=== PATIENT | male | born 1955 | race Caucasian/White ===

== ENCOUNTER 2017-09-02 18:33 | Observation (INO) | payer SELFPAY ==
[~2017-09-02] VITALS: Ht 175.3 cm; Wt 124.7 kg
[~2017-09-02 18:33] MED LIST: CIPR500T78 PO; HYDR-1231 PO; LEVO750T6 PO; METR500T PO
--- NOTE | 2017-09-02 18:52 | Diagnostic Imaging Report ---
CT HEAD WO-R/O STROKE TECHNIQUE: Unenhanced CT imaging of the head was performed. INDICATION: Difficulty speaking. Dizziness. COMPARISON: None available. FINDINGS: No hyperdense hemorrhage or space-occupying mass. No hydrocephalus or midline shift. No evidence of acute territorial infarct. The basilar cisterns are widely patent. No acute calvarial abnormality. Paranasal sinuses and mastoid air cells are clear. IMPRESSION: No acute intracranial process by CT. Dictated by: Dictated on workstation # [id number]
[2017-09-02] MEDS ORDERED: meTOprolol 5 MG/5 ML (LOPRESSOR) VIAL ONE (18:56)
[2017-09-02 19:03] LABS: BASOPHILS # (AUTO) 0.1 10^3/uL (0.0-0.1); BASOPHILS % (AUTO) 1 % (0-10); EOSINOPHILS # (AUTO) 0.2 10^3/uL (0.0-0.3); EOSINOPHILS % (AUTO) 3 % (0-10); HEMATOCRIT 49 % (40-54); HEMOGLOBIN 16.6 G/DL (13.3-17.7); LYMPHOCYTES % (AUTO) 25 % (12-44); MEAN CORPUSCULAR HEMOGLOBIN 27 PG (25-34); MEAN CORPUSCULAR HGB CONC 34 G/DL (32-36); MEAN CORPUSCULAR VOLUME 80 FL (80-99); MEAN PLATELET VOLUME 9.2 FL (7.4-10.4); MONOCYTES % (AUTO) 12 % (0-12); NEUTROPHILS # (AUTO) 4.7 X 10^3 (1.8-7.8); NEUTROPHILS % (AUTO) 59 % (42-75); PLATELET COUNT 318 10^3/uL (130-400); RED BLOOD COUNT 6.06 10^6/uL (4.35-5.85); RED CELL DISTRIBUTION WIDTH 14.5 % (10.0-14.5)
[2017-09-02 19:15] LABS: INR 1.1 (0.8-1.4)
[2017-09-02 19:18] LABS: FIBRIN DEGRADATION PRODUCTS 0.35 UG/ML (0.00-0.49)
--- NOTE | 2017-09-02 19:20 | ED Neurological Problem ---
General Chief Complaint: Neurological Problems Stated Complaint: SLURRED SPEECH,NOT COHERENT, X2 HOURS AGO Source: patient Exam Limitations: no limitations History of Present Illness Date Seen by Provider: Sep 02, 2017 Time Seen by Provider: 18:40 Initial Comments Here with report of slurred speech for the last 2-3 hours. Last known well time was 4 p.m. but thinks the symptoms started sometime after that but is not exactly sure. Has no dysfunction with regard to weakness or sensation issues. Is alert and oriented and is walking without difficulty and or balance problems. Never had anything like this previously. Does report being on phentermine for weight loss. Timing/Duration: 1-3 hours Severity: moderate Associated Symptoms: confusion, No nausea/vomiting, No seizures, slurred speech , No tingling in legs/feet, No trouble walking, No vision changes, No weakness Allergies and Home Medications Allergies Coded Allergies: No Known Drug Allergies (Unverified , 07/19/12) Home Medications Ciprofloxacin HCl 500 Mg Tablet, 500 MG PO BID, #20 Prescribed by: RJ GUZMAN on 05/10/14 1656 Hydrocodone Bit/Acetaminophen 1 Tab Tablet, 1-2 TAB PO Q6H PRN for PAIN, #20 Prescribed by: RJ GUZMAN on 05/10/14 165 Metronidazole 500 Mg Tab, 1 EACH PO TID, #30 Prescribed by: RJ GUZMAN on 05/10/14 1656 Constitutional: see HPI, No chills, No fever Eyes: No Symptoms Reported Ears, Nose, Mouth, Throat: no symptoms reported Respiratory: no symptoms reported Cardiovascular: No chest pain, No edema, No palpitations Gastrointestinal: no symptoms reported, No abdominal pain Genitourinary: no symptoms reported Musculoskeletal: no symptoms reported Skin: no symptoms reported Psychiatric/Neurological: See HPI, Denies Headache, Denies Weakness All Other Systems Reviewed Negative Unless Noted: Yes Past Avslzra-Efjway-Ycjjyn Hx Patient Social History Alcohol Use: Occasionally Uses Recreational Drug Use: No Recent Foreign Travel: No Contact w/Someone Who Travel: No Surgeries History of Surgeries: Yes Surgeries: Gallbladder Respiratory History of Respiratory Disorde: No Cardiovascular History of Cardiac Disorders: Yes Cardiac Disorders: Hypertension Gastrointestinal History of Gastrointestinal Di: Yes Gastrointestinal Disorders: Diverticulosis Reviewed Nursing Assessment Reviewed/Agree w Nursing PMH: Yes Family Medical History Significant Family History: No Pertinent Family Hx Physical Exam Vital Signs Capillary Refill : General Appearance: WD/WN, no apparent distress HEENT: PERRL/EOMI, pharynx normal Neck: full range of motion, supple Respiratory: lungs clear, normal breath sounds Cardiovascular: no murmur, tachycardia Gastrointestinal: non tender, soft Back: normal inspection, no CVA tenderness, no vertebral tenderness Extremities: non-tender, normal inspection Neurologic/Psychiatric: alert, oriented x 3 Crainal Nerves: abnormal speech (stuttering and word searching), No facial asymmetry, No facial droop, No facial paresthesias, No facial weakness, No tongue deviation to R, No tongue deviation to L Coordination/Gait: normal gait Motor/Sensory: no motor deficit, no sensory deficit, no pronator drift Skin: normal color, warm/dry Progress/Results/Core Measures Results/Orders Lab Results Laboratory Tests Test 09/02/17 18:54 Range/Units White Blood Count 8.0 4.3-11.0 10^3/uL Red Blood Count 6.06 H 4.35-5.85 10^6/uL Hemoglobin 16.6 13.3-17.7 G/DL Hematocrit 49 40-54 % Mean Corpuscular Volume 80 80-99 FL Mean Corpuscular Hemoglobin 27 25-34 PG Mean Corpuscular Hemoglobin Concent 34 32-36 G/DL Red Cell Distribution Width 14.5 10.0-14.5 % Platelet Count 318 130-400 10^3/uL Mean Platelet Volume 9.2 7.4-10.4 FL Neutrophils (%) (Auto) 59 42-75 % Lymphocytes (%) (Auto) 25 12-44 % Monocytes (%) (Auto) 12 0-12 % Eosinophils (%) (Auto) 3 0-10 % Basophils (%) (Auto) 1 0-10 % Neutrophils # (Auto) 4.7 1.8-7.8 X 10^3 Lymphocytes # (Auto) 2.0 1.0-4.0 X 10^3 Monocytes # (Auto) 1.0 0.0-1.0 X 10^3 Eosinophils # (Auto) 0.2 0.0-0.3 10^3/uL Basophils # (Auto) 0.1 0.0-0.1 10^3/uL Prothrombin Time 14.0 12.2-14.7 SEC INR Comment 1.1 0.8-1.4 Activated Partial Thromboplast Time 32 24-35 SEC D-Dimer 0.35 0.00-0.49 UG/ML Sodium Level 138 135-145 MMOL/L Potassium Level 4.1 3.6-5.0 MMOL/L Chloride Level 102 98-107 MMOL/L Carbon Dioxide Level 24 21-32 MMOL/L Anion Gap 12 5-14 MMOL/L Blood Urea Nitrogen 9 7-18 MG/DL Creatinine 1.13 0.60-1.30 MG/DL Estimat Glomerular Filtration Rate > 60 BUN/Creatinine Ratio 8 Glucose Level 117 H 70-105 MG/DL Calcium Level 9.8 8.5-10.1 MG/DL Total Bilirubin 0.8 0.1-1.0 MG/DL Aspartate Amino Transf (AST/SGOT) 19 5-34 U/L Alanine Aminotransferase (ALT/SGPT) 29 0-55 U/L Alkaline Phosphatase 94 40-136 U/L Troponin I < 0.30 <0.30 NG/ML Total Protein 8.1 6.4-8.2 GM/DL Albumin 4.2 3.2-4.5 GM/DL My Orders Orders - ALEXIS MANCUSO MD Metoprolol Tartrate Injection (Lopressor (09/02/17 18:56) Drug Screen Stat (Urine) (09/02/17 20:47) Progress Note : Progress Note Seen and evaluated. Stroke activation initiated. IV, labs, EKG and chest x- ray ordered. CT head ordered. Stroke scale done and is 1 only for word searching. Speech is clear otherwise. No other deficits noted or reported. Patient is too low on the stroke scale for TPA as well as his symptoms seem to be resolving. Pressure is elevated and he is on phentermine. Lopressor 5 mg IV ordered. Monitor patient. 1927: Speech is now improved even more. Dysphagia screen past. Monitor patient. 2042: I did discuss the case with Dr. Murray. patient's symptoms have essentially completely resolved and blood pressure is currently 136/87. Due to the onset of symptoms and severity as well as his blood pressure concerns and this is his first event, we will admit the patient observation overnight. I did discuss this with the patient and family and he accepts and agrees for admission. ECG Initial ECG Impression Date: Sep 02, 2017 Initial ECG Impression Time: 18:40 Initial ECG Rate: 105 Initial ECG Rhythm: S.Tach Initial ECG Intervals: Normal Initial ECG Impression: Normal Initial ECG Comparisson: No Previous ECG Available Comment Sinus tachycardia with normal axis. No evidence of ST elevation GA. No previous EKG available for comparison. Interpreted by me. Diagnostic Imaging Diagonstic Imaging: CT Plain Films/CT/US/NM/MRI: head Comments NAME: DAVE VARELA MED REC#: [id number] PT STATUS: REG ER : 1955 PHYSICIAN: RJ GUZMAN APRN ADMIT DATE: 09/02/17/ER Signed Date of Exam: 09/02/17 CT HEAD WO-R/O STROKE CT HEAD WO-R/O STROKE TECHNIQUE: Unenhanced CT imaging of the head was performed. INDICATION: Difficulty speaking. Dizziness. COMPARISON: None available. FINDINGS: No hyperdense hemorrhage or space-occupying mass. No hydrocephalus or midline shift. No evidence of acute territorial infarct. The basilar cisterns are widely patent. No acute calvarial abnormality. Paranasal sinuses and mastoid air cells are clear. IMPRESSION: No acute intracranial process by CT. Dictated by: Dictated on workstation # [id number] Dict: 09/02/17 184 Trans: 09/02/171852 Interpreted by: AARON STOCKTON MD Electronically signed by: AARON STOCKTON MD 09/02/171852 Diagonstic Imaging: Xray Plain Films/CT/US/NM/MRI: chest Comments [place] NAME: DAVE VARELA MED REC#: [id number] PT STATUS: REG ER : 1955 PHYSICIAN: RJ GUZMAN APRN ADMIT DATE: 09/02/17/ER Draft Date of Exam:09/02/17 CHEST 1 VIEW, AP/PA ONLY INDICATION: Altered mental status. COMPARISON: None available. FINDINGS: Examination is limited by portable technique and very low lung volumes. There is asymmetric elevation of the right hemidiaphragm. The lower lobes are very poorly evaluated on this examination. In the visible lungs, there is no focal airspace disease. No pleural effusion or pneumothorax. The cardiac silhouette is enlarged. IMPRESSION: 1. Very limited examination as detailed above. 2. Allowing for this, no definitive acute cardiopulmonary process. Dictated on workstation # [id number] Dict: 09/02/171917 Trans: 09/02/171922 [id number] Interpreted by: AARON STOCKTON MD Electronically signed by: Departure Communication (Admissions) Time/Spoke to Admitting Phy: 20:48 Impression Impression: Primary Impression: Malignant hypertension Additional Impression: Transient ischemic attack Qualified Codes: G45.9 - Transient cerebral ischemic attack, unspecified Disposition: ADMITTED INPATIENT Condition: Stable Admissions Decision to Admit Reason: Admit from ER (General) Decision to Admit/Date: Sep 02, 2017 Time/Decision to Admit Time: 20:48 Departure-Patient Inst. Referrals: [facility] (PCP/Family) Primary Care Physician ALEXIS MANCUSO MD Sep 02, 2017 19:20
[2017-09-02 19:23] LABS: ALANINE AMINOTRANSFERASE 29 U/L (0-55); ALBUMIN 4.2 GM/DL (3.2-4.5); ALKALINE PHOSPHATASE 94 U/L (40-136); BILIRUBIN,TOTAL 0.8 MG/DL (0.1-1.0); BUN/CREATININE RATIO 8; CALCIUM 9.8 MG/DL (8.5-10.1); CARBON DIOXIDE 24 MMOL/L (21-32); CHLORIDE 102 MMOL/L (98-107); CREATININE SERUM 1.13 MG/DL (0.60-1.30); GFR ESTIMATED > 60; GLUCOSE 117 MG/DL (70-105); POTASSIUM 4.1 MMOL/L (3.6-5.0); SODIUM 138 MMOL/L (135-145); TOTAL PROTEIN 8.1 GM/DL (6.4-8.2)
--- NOTE | 2017-09-02 19:23 | Diagnostic Imaging Report ---
INDICATION: Altered mental status. COMPARISON: None available. FINDINGS: Examination is limited by portable technique and very low lung volumes. There is asymmetric elevation of the right hemidiaphragm. The lower lobes are very poorly evaluated on this examination. In the visible lungs, there is no focal airspace disease. No pleural effusion or pneumothorax. The cardiac silhouette is enlarged. IMPRESSION: 1. Very limited examination as detailed above. 2. Allowing for this, no definitive acute cardiopulmonary process. Dictated by: Dictated on workstation # [id number]
--- OUTSIDE RECORDS SUMMARY | 2017-09-02 21:17 | XMS REPORT | Continuity of Care Document ---
Demographics Preferred Language Unknown Marital Status Unknown Anabaptism Affiliation Unknown Race Unknown Ethnic Group Unknown Author Author [facility] Address Unknown Phone Unavailable Allergies Active Description Code Type Severity Reaction Onset Reported/Identified Relationship to Patient Clinical Status Yes No Known Drug Allergies [id number] Drug Allergy Unknown N/A 07/19/2012 Medications There is no data. Problems Date Dx Coded Attending Type Code Diagnosis Diagnosed By 08/26/2009 729.5 PAIN IN LIMB 08/26/2009 729.5 PAIN IN LIMB 08/26/2009 729.5 PAIN IN LIMB 09/09/2009 401.9 HYPERTENSION ( SYSTEMIC) 09/09/2009 401.9 HYPERTENSION ( SYSTEMIC) 09/09/2009 401.9 HYPERTENSION ( SYSTEMIC) 05/28/2011 719.46 PAIN IN JOINT INVOLVING LOWER LEG 05/28/2011 719.46 PAIN IN JOINT INVOLVING LOWER LEG 05/28/2011 719.46 PAIN IN JOINT INVOLVING LOWER LEG 07/20/2012 Ot 550.90 07/20/2012 Ot 562.11 07/20/2012 Ot 789.00 08/20/2012 562.11 DIVERTICULITIS OF COLON (WITHOUT HEMORRHAGE) 08/20/2012 562.11 DIVERTICULITIS OF COLON (WITHOUT HEMORRHAGE) 08/20/2012 562.11 DIVERTICULITIS OF COLON (WITHOUT HEMORRHAGE) 10/16/2012 465.9 UPPER RESPIRATORY INFECTION 05/10/2014 RJ GUZMAN APRN Ot 562.11 05/10/2014 RJ GUZMAN APRN Ot 789.04 03/14/2015 Ot 715.96 03/14/2015 Ot 719.46 03/14/2015 Ot 729.5 Procedures There is no data. Results Test Result Range Complete blood count (CBC) with automated white blood cell (WBC) differential - 09/02/17 18:54 Blood leukocytes automated count (number/volume) 8.0 10*3/uL 4.3-11.0 Blood erythrocytes automated count (number/volume) 6.06 10*6/uL 4.35-5.85 Venous blood hemoglobin measurement (mass/volume) 16.6 g/dL 13.3-17.7 Blood hematocrit (volume fraction) 49 % 40-54 Automated erythrocyte mean corpuscular volume 80 [foz_us] 80-99 Automated erythrocyte mean corpuscular hemoglobin (mass per erythrocyte) 27 pg 25-34 Automated erythrocyte mean corpuscular hemoglobin concentration measurement ( mass/volume) 34 g/dL 32-36 Automated erythrocyte distribution width ratio 14.5 % 10.0-14.5 Automated blood platelet count (count/volume) 318 10*3/uL 130-400 Automated blood platelet mean volume measurement 9.2 [foz_us] 7.4-10.4 Automated blood neutrophils/100 leukocytes 59 % 42-75 Automated blood lymphocytes/100 leukocytes 25 % 12-44 Blood monocytes/100 leukocytes 12 % 0-12 Automated blood eosinophils/100 leukocytes 3 % 0-10 Automated blood basophils/100 leukocytes 1 % 0-10 Blood neutrophils automated count (number/volume) 4.7 10*3 1.8-7.8 Blood lymphocytes automated count (number/volume) 2.0 10*3 1.0-4.0 Blood monocytes automated count (number/volume) 1.0 10*3 0.0-1.0 Automated eosinophil count 0.2 10*3/uL 0.0-0.3 Automated blood basophil count (count/volume) 0.1 10*3/uL 0.0-0.1 PT panel in platelet poor plasma by coagulation assay - 09/02/17 18:54 Prothrombin time (PT) in platelet poor plasma by coagulation assay 14.0 s 12.2-14.7 INR in platelet poor plasma or blood by coagulation assay 1.1 0.8-1.4 Activated partial thromboplastin time (aPTT) in platelet poor plasma bycoagulation assay - 09/02/17 18:54 Activated partial thromboplastin time (aPTT) in platelet poor plasma bycoagulation assay 32 s 24-35 Comprehensive metabolic panel - 09/02/17 18:54 Serum or plasma sodium measurement (moles/volume) 138 mmol/L 135-145 Serum or plasma potassium measurement (moles/volume) 4.1 mmol/L 3.6-5.0 Serum or plasma chloride measurement (moles/volume) 102 mmol/L 98-107 Carbon dioxide 24 mmol/L 21-32 Serum or plasma anion gap determination (moles/volume) 12 mmol/L 5-14 Serum or plasma urea nitrogen measurement (mass/volume) 9 mg/dL 7-18 Serum or plasma creatinine measurement (mass/volume) 1.13 mg/dL 0.60-1.30 Serum or plasma urea nitrogen/creatinine mass ratio 8 NRG Serum or plasma creatinine measurement with calculation of estimated glomerular filtration rate > NRG Serum or plasma glucose measurement (mass/volume) 117 mg/dL 70-105 Serum or plasma calcium measurement (mass/volume) 9.8 mg/dL 8.5-10.1 Serum or plasma total bilirubin measurement (mass/volume) 0.8 mg/dL 0.1-1.0 Serum or plasma alkaline phosphatase measurement (enzymatic activity/volume) 94 U/L 40-136 Serum or plasma aspartate aminotransferase measurement (enzymatic activity/ volume) 19 U/L 5-34 Serum or plasma alanine aminotransferase measurement (enzymatic activity/volume ) 29 U/L 0-55 Serum or plasma protein measurement (mass/volume) 8.1 g/dL 6.4-8.2 Serum or plasma albumin measurement (mass/volume) 4.2 g/dL 3.2-4.5 Fibrin D-dimer FEU measurement in platelet poor plasma (mass/volume) - 18:54 Fibrin D-dimer FEU measurement in platelet poor plasma (mass/volume) 0.35 ug/mL 0.00-0.49 Serum or plasma troponin i.cardiac measurement (mass/volume) - 09/02/17 18:54 Serum or plasma troponin i.cardiac measurement (mass/volume) < ng/ mL <0.30 Encounters ACCT No. Visit Date/Time Discharge Status Pt. Type Provider Facility Loc./Unit Complaint [id number] 10/16/2012 15:58:00 10/16/2012 23:59:59 [facility] Outpatient [id number] 09/17/2012 14:56:00 09/17/2012 23:59:59 [facility] Outpatient [id number] 08/20/2012 09:29:00 08/20/2012 23:59:59 [facility] Outpatient [id number] 05/10/2014 15:19:00 05/10/2014 17:10:00 DIS Emergency RJ GUZMAN APRN [facility] ER [id number] 09/02/2017 19:04:00 Document Registration [id number] 03/14/2015 08:53:00 Document Registration [id number] 06/27/2011 11:01:00 Document Registration
[2017-09-02 21:48] LABS: BILIRUBIN,URINE NEGATIVE (NEGATIVE); CLARITY,URINE CLEAR; COLOR,URINE YELLOW; GLUCOSE, URINE (UA) NEGATIVE (NEGATIVE); KETONES,URINE NEGATIVE (NEGATIVE); LEUKOCYTE ESTERASE ,URINE 1+ (NEGATIVE); NITRITE,URINE NEGATIVE (NEGATIVE); PH,URINE 8 (5-9); PROTEIN,URINE NEGATIVE (NEGATIVE); UROBILINOGEN,URINE NORMAL (NORMAL)
[2017-09-02 22:01] LABS: AMPHETAMINE SCREEN, URINE POSITIVE (NEGATIVE); BARBITURATE SCREEN URINE NEGATIVE (NEGATIVE); BENZODIAZEPINES SCREEN URINE NEGATIVE (NEGATIVE); CANNABINOID SCREEN, URINE NEGATIVE (NEGATIVE); COCAINE SCREEN URINE NEGATIVE (NEGATIVE); METHADONE STAT NEGATIVE (NEGATIVE); METHAMPHETAMINE SCREEN URINE S NEGATIVE (NEGATIVE); OPIATE SCREEN URINE NEGATIVE (NEGATIVE); OXYCODONE STAT NEGATIVE (NEGATIVE); PROPOXYPHENE STAT NEGATIVE (NEGATIVE); TRICYCLIC ANTIDEPRESSANTS SCRE NEGATIVE (NEGATIVE)
[2017-09-03 07:33] VITALS: BP 115/72
[2017-09-03] MEDS ORDERED: ENALAPRIL 10 MG (VASOTEC) TAB PO SCH (09:16)
--- NOTE | 2017-09-03 09:28 | Discharge Summary ---
Diagnosis/Chief Complaint Date of Admission Sep 02, 2017 at 20:50 Date of Discharge 09/03/17 Admission Diagnosis Admission Diagnosis Hypertensive Urgency Aphasia Obesity Dyslipidemia Discharge Diagnosis Hypertensive Urgency 09/03 -symptomatic hypertension on arrival to ED with garbled speech that resolved when he received a dose of IV labetalol that normalized his blood pressure -suspect that this was secondary to pt taking phentermine, which he started about 5 days ago for weight loss -pt was restarted on his home dose of 10 mg enalapril -pt has remained normotensive overnight and has had no recurrence of his symptoms, mild hypertension this AM without any symptoms before he received his AM blood pressure medication -will discharge to home and have patient stop phentermine and continue with enalapril -close follow up to see if patient requires increase in blood pressure medication Aphasia -resolved Obesity -encouraged to use diet and lifestyle modification, and not to take any more phentermine as hypertension is a known side effect and he already has hypertension Dyslipidemia -pt had lipid panel done in the clinic recently that showed elevated cholesterol -pt reports he was hoping to lose weight and avoid cholesterol medication -advised patient that he would likely be better off with statin therapy while he worked on weight loss -given his history of elevated cholesterol and his symptoms last night, recommend patient have carotid dopplers as outpatient to establish baseline Chief Complaint/HPI Chief Complaint/HPI Patient presented to ED last night with garbled speech that began abruptly just prior to arrival. Patient has never had similar symptoms before. He was found to be significantly hypertensive on arrival to the ED and was given IV medication to lower his blood pressure. After one dose of medication, his blood pressure dropped to a more normal range and his symptoms resolved. He reports that he recently had started phentermine for weight loss, which was prescribed by his PCP - he had the prescription bottle which verified this. A urine drug screen was positive for amphetamines, which is easily attributed to his prescribed phentermine. Patient had a head CT that was negative for acute process; he also had a CXR that was negative for acute processes. The patient was observed overnight and had no recurrence of his symptoms. This morning he is feeling well and ready for discharge. Discharge Summary-OBS Procedures None. Discharge Physical Examination Allergies: Coded Allergies: No Known Drug Allergies (Unverified , 07/19/12) Vitals & I&Os Vital Sign - Last 12Hours Date Time Temp Pulse Resp B/P (MAP) Pulse Ox O2 Delivery O2 Flow Rate FiO2 09/03/17 07:57 64 18 97 09/03/17 07:33 115/72 (86) Room Air 09/02/17 18:39 97.4 09/02/17 18:39 2.00 General Appearance: Alert, Oriented X3, Cooperative, No Acute Distress HEENT: Atraumatic, PERRLA, EOMI, Mucous Memb Moist/[place] Respiratory: Clear to Auscultation, Normal Air Movement Cardiovascular: Regular Rate, Normal S1, Normal S2, No Murmurs, Other (no carotid bruits bilaterally) Abdominal: Normal Bowel Sounds, Soft, No Tenderness, No Hepatosplenomegaly, No Masses Extremities: No Clubbing, No Cyanosis, No Edema, Normal Pulses, No Tenderness/ Swelling Skin: No Rashes, No Significant Lesion Neuro: Normal Gait, Normal Speech, Normal Tone, Sensation Intact, Cranial Nerves 3-12 NL Psych/Mental Status: Mental Status NL, Mood NL Hospital Course see final discharge diagnosis Labs Laboratory Tests 09/02/17 18:54: White Blood Count 8.0, Red Blood Count 6.06H, Hemoglobin 16.6, Hematocrit 49, Mean Corpuscular Volume 80, Mean Corpuscular Hemoglobin 27, Mean Corpuscular Hemoglobin Concent 34, Red Cell Distribution Width 14.5, Platelet Count 318, Mean Platelet Volume 9.2, Neutrophils (%) (Auto) 59, Lymphocytes (%) (Auto) 25, Monocytes (%) (Auto) 12, Eosinophils (%) (Auto) 3, Basophils (%) (Auto) 1, Neutrophils # (Auto) 4.7, Lymphocytes # (Auto) 2.0, Monocytes # (Auto) 1.0, Eosinophils # (Auto) 0.2, Basophils # (Auto) 0.1, Prothrombin Time 14.0, INR Comment 1.1, Activated Partial Thromboplast Time 32, D-Dimer 0.35, Sodium Level 138, Potassium Level 4.1, Chloride Level 102, Carbon Dioxide Level 24, Anion Gap 12, Blood Urea Nitrogen 9, Creatinine 1.13, Estimat Glomerular Filtration Rate > 60, BUN/Creatinine Ratio 8, Glucose Level 117H, Calcium Level 9.8, Total Bilirubin 0.8, Aspartate Amino Transf (AST/SGOT) 19, Alanine Aminotransferase ( ALT/SGPT) 29, Alkaline Phosphatase 94, Troponin I < 0.30, Total Protein 8.1, Albumin 4.2 09/02/17 21:40: Urine Color YELLOW, Urine Clarity CLEAR, Urine pH 8, Urine Specific [place] 1.015L, Urine Protein NEGATIVE, Urine Glucose (UA) NEGATIVE, Urine Ketones NEGATIVE, Urine Nitrite NEGATIVE, Urine Bilirubin NEGATIVE, Urine Urobilinogen NORMAL, Urine Leukocyte Esterase 1+H, Urine RBC (Auto) NEGATIVE, Urine RBC NONE , Urine WBC 2-5, Urine Crystals NONE, Urine Bacteria NONE, Urine Casts NONE, Urine Mucus SMALLH, Urine Culture Indicated NO, Urine Opiates Screen NEGATIVE, Urine Oxycodone Screen NEGATIVE, Urine Methadone Screen NEGATIVE, Urine Propoxyphene Screen NEGATIVE, Urine Barbiturates Screen NEGATIVE, Ur Tricyclic Antidepressants Screen NEGATIVE, Urine Phencyclidine Screen NEGATIVE, Urine Amphetamines Screen POSITIVEH, Urine Methamphetamines Screen NEGATIVE, Urine Benzodiazepines Screen NEGATIVE, Urine Cocaine Screen NEGATIVE, Urine Cannabinoids Screen NEGATIVE Radiology Reviewed Head CT: Negative for acute process CXR: Negative for acute process Discussion & Recommendations Strongly suspect that patient's symptoms are secondary to hypertensive urgency caused by phentermine. Feel that patient is safe for discharge with close follow up in the clinic and no further use of phentermine. Patient did have a positive urine drug screen for amphetamines, but this is easily attributed to his prescription for phentermine, which he brought with him and showed to the ED physician. Pt would likely benefit from statin therapy for his dyslipidemia while he works on diet and exercise. Given his symptoms and known dyslipidemia , would recommend obtaining carotid dopplers to establish baseline. Close follow up to titrate blood pressure medication as needed to meet goal therapy of 130/80 per 2017 ACC guidelines. Discharge Condition at discharge Improved and stable. Instructions to patient/family Please see electronic discharge instructions given to patient. Discharge Medications Reviewed and agree with Discharge Medication list on patient's Discharge Instruction sheet Copy Copies To 1: [facility]/KARON BLANTON DO Sep 03, 2017 09:28
[2017-09-03] MEDS ORDERED: PHEN37.53 PO (10:20)
[2017-09-03] MEDS ORDERED: ENAL10TA PO (10:43)
[2017-09-03] MEDS ORDERED: INFLUENZA TRIvalent 2017-2018 0.5 ML/45 MCG SYR IM ONE (11:15)
--- NOTE | 2017-09-03 11:44 | Discharge Instructions ---
Discharge Inst-[facility] Discharge Medications Continued Medications: Enalapril Maleate (Enalapril Maleate) 10 Mg Tablet 10 MG PO DAILY, TAB Discontinued Medications: Phentermine HCl (Phentermine HCl) 37.5 Mg Tablet 37.5 MG PO DAILY, TAB Patient Instructions Patient Instructions 1. Low Salt Diet 2. Low Fat Diet 3. Take blood pressure medication daily 4. Stop phentermine 5. Keep follow up appointment as scheduled: 09/06/17 at 4:00 with Eric HUSSEIN Goal/Follow Up Appt: 09/06/17 at 4 PM Return to [facility] For: chest pain or pressure, shortness of breath unrelieved by rest, recurrence of previous symptoms - garbled speech, difficulty speaking, uneven facial features or drooping on one side of face, etc, or any other emergent complaints or concerns Activity & Diet Discharge Diet: Low Sodium Diet, Low Fat/Low Cholesterol Activity as Tolerated: Yes Orders-Post D/C & Referrals Recommend outpatient carotid dopplers and consideration of initiating statin therapy Copy Copies To 1: [facility]/KARON BLANTON DO Sep 03, 2017 11:44
[2017-09-03 11:55] VITALS: BP 128/78
== END 2017-09-03 11:36 | disposition home or self-care (01) ==
LOC: EDUNIT# 18:33 → ER 18:36 → 4TH 20:50 → UNDOADMOB 20:50 → 4TH 21:49 → UNDODISOB 09-03 12:00
PROVIDERS: ADMIT Family Medicine; ATTEND Family Medicine
DX: I16.0 Hypertensive urgency (principal); R47.01 Aphasia; E66.9 Obesity, unspecified; E78.5 Hyperlipidemia, unspecified; Z68.41 Body mass index [BMI] 40.0-44.9, adult
CPT/HCPCS: 36415; 70450; 71045; 80053; 80306; 81000; 84484; 85025; 85379; 85610; 85730; 93005; 93041; 96374; G0378